=== PATIENT | female | born 1970 | race Caucasian/White ===

== ENCOUNTER 2018-02-04 08:22 | Day surgery (SDC) | payer BC, OTHER ==
[2018-02-03 09:32] VITALS: BMI 54.2
[2018-02-04] MEDS ORDERED: Lidocaine 1% PF 5 ML VIAL ONE (14:30)
[2018-02-04] MEDS ORDERED: PROPOFOL 200 MG/20 ML VIAL ONE (14:30)
--- NOTE | 2018-02-04 15:01 | OP ---
DATE OF PROCEDURE: 02/04/2018 GI ENDOSCOPY NOTE SURGEON: Klaus Dukes M.D. [employer] SURGEON: None. PROCEDURE: Colonoscopy with biopsies. INDICATIONS: 1. Chronic diarrhea. 2. Rectal bleeding. 3. History of colon polyp, tubular adenoma removed on last colonoscopy 3 years ago. MEDICATIONS: See anesthesia record. FINDINGS: After discussion of the risks, benefits and alternatives of the procedure, informed consen t was obtained and witnessed. Pre-endoscopic cardiopulmonary examination was satisfactory. Timeout was performed before sedation was achieved. Sedation was achieved with anesthesia assistance in the endoscopy unit. Digital rectal exam was performed which was unremarkable. A Pentax adult colonoscop e was inserted into the anus and passed forward to the cecum in the usual fashion. The cecal base wa s identified by the appendiceal orifice as well as the ileocecal valve. The terminal ileum was intub ated and the ileal mucosa appeared normal. The colonoscope was then slowly withdrawn in a gradual an d circumferential manner with careful examination of the entire colonic mucosa. The colonic mucosa a ppeared normal throughout. There was no evidence of gross inflammatory disease. No polyps visualize d on this examination. I did obtain random colon biopsies from the mucosa of the right and left colo n to rule out microscopic colitis. Retroflexion in the rectum demonstrated medium sized internal hem orrhoids. The colonoscope was then completely withdrawn and the patient allowed to recover. The pat ient tolerated the procedure well. There were no immediate post-procedure complications. IMPRESSION: 1. Medium sized internal hemorrhoids. 2. Otherwise, normal colonoscopy to the terminal ileum. Random colon biopsies obtained. RECOMMENDATIONS: 1. Follow up pathology on the random colon biopsies. 2. The patient can use Imodium as needed. 3. If pathology results are normal and rectal bleeding persists, we would consider surgical consulta tion for the internal hemorrhoids, given lack of response to conservative measures. 4. Repeat colonoscopy for surveillance in 5 years. 5. We will have her follow up in clinic in the next 3-4 weeks.
== END 2018-02-04 11:40 | disposition home or self-care (01) ==
LOC: SDC 08:22
PROVIDERS: ATTEND Internal Medicine
PROC: 0DBG8ZX Excision of Left Large Intestine, Via Natural or Artificial Opening Endoscopic, Diagnostic (ICD-10-PCS; principal; 2018-02-04)
PROC: 0DBF8ZX Excision of Right Large Intestine, Via Natural or Artificial Opening Endoscopic, Diagnostic (ICD-10-PCS; principal; 2018-02-04)
DX: K62.5 Hemorrhage of anus and rectum (principal); K64.8 Other hemorrhoids; K52.9 Noninfective gastroenteritis and colitis, unspecified; E11.9 Type 2 diabetes mellitus without complications; E03.9 Hypothyroidism, unspecified; I10 Essential (primary) hypertension; F41.9 Anxiety disorder, unspecified; J44.9 Chronic obstructive pulmonary disease, unspecified; K21.9 Gastro-esophageal reflux disease without esophagitis; F31.9 Bipolar disorder, unspecified; G47.30 Sleep apnea, unspecified; E78.5 Hyperlipidemia, unspecified; E73.9 Lactose intolerance, unspecified; L23.0 Allergic contact dermatitis due to metals; E66.9 Obesity, unspecified; Z68.43 Body mass index [BMI] 50.0-59.9, adult; Z86.010 Personal history of colon polyps; Z87.891 Personal history of nicotine dependence; Z88.2 Allergy status to sulfonamides; Z88.8 Allergy status to other drugs, medicaments and biological substances; Z91.040 Latex allergy status; Z91.048 Other nonmedicinal substance allergy status; Z79.82 Long term (current) use of aspirin; Z79.51 Long term (current) use of inhaled steroids; Z79.84 Long term (current) use of oral hypoglycemic drugs; Z79.899 Other long term (current) drug therapy; Z98.890 Other specified postprocedural states
CPT/HCPCS: 88305; J2001; J2704

== ENCOUNTER 2019-10-13 13:26 | Outpatient (CLI) | payer BC ==
--- NOTE | 2019-10-13 16:07 | MMO ---
Bilateral MAMMO Bilat Screen [facility]. CLINICAL HISTORY: Patient is 49 years old and is seen for screening. The patient has the following family history of breast cancer: maternal aunt, malignant (generic), great aunt. The patient has no personal history of cancer. VIEWS: The views performed were: bilateral craniocaudal with tomosynthesis and bilateral mediolateral oblique with tomosynthesis. FILMS COMPARED: The present examination has been compared to prior imaging studies performed at [facility] on 06/25/2015, and at [facility] on 09/25/2011. This study has been interpreted with the assistance of computer-aided detection. MAMMOGRAM FINDINGS: There are scattered fibroglandular densities. There are benign appearing calcifications seen in the left breast. There are no suspicious masses, suspicious calcifications, or new areas of architectural distortion. IMPRESSION: THERE IS NO MAMMOGRAPHIC EVIDENCE OF MALIGNANCY. A ROUTINE FOLLOW-UP MAMMOGRAM IN 1 YEAR IS RECOMMENDED. THE RESULTS OF THIS EXAM WERE SENT TO THE PATIENT. ACR BI-RADS Category 2 - Benign finding MAMMOGRAPHY NOTE: 1. A negative mammogram report should not delay a biopsy if a dominant of clinically suspicious mass is present. 2. Approximately 10% to 15% of breast cancers are not detected by mammography. 3. Adenosis and dense breasts may obscure an underlying neoplasm. Reported by: JED MCNULTY MD Electonically Signed: [id number]
== END 2019-10-13 13:27 | disposition home or self-care (01) ==
LOC: BICMAMMO 13:26
PROVIDERS: ATTEND Family Medicine
DX: Z12.31 Encounter for screening mammogram for malignant neoplasm of breast (principal); Z80.3 Family history of malignant neoplasm of breast
CPT/HCPCS: 77063; 77067